=== PATIENT | female | born 1985 | race Caucasian/White ===

== ENCOUNTER 2016-07-24 12:28 | Day surgery (SDC) | payer SELFPAY ==
--- NOTE | ~2016-07-24 | OP ---
Record Of Operation [facility] [address] [place]. [address] NAME: NITHIN CRAIN : 89 STATUS : [facility]#: [id number] AGE: 31 ADM/REG DATE : 07/24/16 MR#: [id number] REPORT SERV DATE: 07/28/16 DICTATED BY: LUCIO SOMMER DATE: 07/28/16 REPORT STATUS : Draft TRANSCRIBED BY: MODL DATE: 07/28/16 DATE OF PROCEDURE: 07/24/2016 PREOPERATIVE DIAGNOSIS: Acute appendicitis. POSTOPERATIVE DIAGNOSIS: Acute appendicitis. PROCEDURE: Laparoscopic appendectomy. DESCRIPTION OF OPERATIVE PROCEDURE: The patient was brought to the operating suite, placed in supine position, underwent satisfactory general endotracheal anesthesia without incident. The skin of the abdomen was scrubbed, prepped, and draped in the usual sterile fashion. 0.5% Marcaine with epinephrine was utilized as supplemental local anesthesia at all intended trocar sites. Initially, an infraumbilical incision was performed dissecting through the skin and subcutaneous tissue to the umbilical fascia. This was grasped with a Jacqui clamp and elevated and a disposable Veress insufflation needle was inserted through the umbilical fascia into the peritoneal cavity. Intraperitoneal tip location was next ascertained using the saline hanging drop method following which CO2 was insufflated for pressures of 15 mmHg throughout the case. After adequate insufflation pressures achieved, the Veress needle was removed, disposable bladed/shielded 12 mm bladed trocar was inserted through the umbilical fascia into the peritoneal cavity. Following this, a rigid forward-viewing 10 mm laparoscope was inserted. Visualization of the intraabdominal parietes revealed no evidence of injury from initial insufflation or puncture. A cursory examination of the pelvis was normal. Attention was then turned to the suprapubic area where an additional 5 mm trocar was placed and then the epigastrium in the midline where a final 5 mm trocar was placed. The camera was switched to the 5 mm epigastric site for the rest of the case. Attention to the right lower quadrant revealed a very early acute appendicitis with some rigidity and firmness in the distal half of the appendix. The appendix was gently elevated and grasped and an avascular window was created at the base of the appendix at its junction with the cecum through the avascular area in the mesoappendix. An EndoGIA 45 linear stapler with GI load was passed across this, closed and fired transecting the appendix. Hemostasis was assured. An additional firing of the same stapler with a vascular load was used to transect the mesoappendix and then again hemostasis was assured. The appendix was placed inside the Endo retrieval pouch and irrigation of the ileocecal area Record Of Operation [facility] [address] [place]. [address] NAME: NITHIN CRAIN : 89 STATUS : [facility] PAT#: [id number] AGE: 31 ADM/REG DATE : 07/24/16 MR#: [id number] REPORT SERV DATE: 07/28/16 DICTATED BY: LUCIO SOMMER DATE: 07/28/16 REPORT STATUS : Draft TRANSCRIBED BY: JE DATE: 07/28/16 and right pelvis was performed and aspirated. Again, hemostasis was assured. Next, the appendix was withdrawn through the umbilicus and the trocars removed under direct visualization. No muscular bleeding was noted. CO2 was allowed to egress from the peritoneal cavity. The umbilicus was closed with figure- of-eight suture of 0 Vicryl, subcutaneous tissue closure with interrupted 4-0 Vicryl, running subcuticular stitch 4-0 Vicryl for the skin following which Dermabond skin adhesive placed. The patient tolerated the procedure well and was returned to PACU in stable condition. At the termination of the procedure, sponge, needle, lap, and instrument counts were correct x3. ESTIMATED BLOOD LOSS: Less than 5-10 mL. WR/MODL Lucio Sommer M.D. / [id number] CC: Antonio Jones KATHLEEN L
[2016-07-24] MEDS ORDERED: KLONO5 PO (13:25)
[2016-07-24] MEDS ORDERED: PROBIOTIC (13:26)
[2016-07-24] MEDS ORDERED: CRANBERY450 MG PO (13:26)
== END 2016-07-24 17:07 | disposition home or self-care (01) ==
LOC: SDC 12:28
PROVIDERS: Specialist
PROC: 0DTJ4ZZ Resection of Appendix, Percutaneous Endoscopic Approach (ICD-10-PCS; principal; 2016-07-24 13:45)
DX: K35.80 Unspecified acute appendicitis (principal); F41.9 Anxiety disorder, unspecified
CPT/HCPCS: 84703; 88304; J0690; J1885; J2250; J2270; J2405; J2550; J2710; J3010